=== PATIENT | female | born 1970 | race Caucasian/White ===

== ENCOUNTER 2017-04-07 11:22 | Emergency (ER) | payer OTHER ==
[2017-04-07] MEDS ORDERED: Sodium Chloride 0.9% 10 ML Syringe FLUSH PRN ×2 (11:27)
[2017-04-07 11:36] VITALS: BP 156/110
--- NOTE | 2017-04-07 11:38 | EDM.PDOC ---
ED HPI GENERAL MEDICAL PROBLEM - General Chief Complaint: Neuro Symptoms/Deficits Stated Complaint: WEAKNESS, BROUGHT OVER FROM ACU Time Seen by Provider: 04/07/17 11:26 Source of Information: Reports: Patient, RN Notes Reviewed History Limitations: Reports: No Limitations - History of Present Illness INITIAL COMMENTS - FREE TEXT/NARRATIVE: 46-year-old female presents emergency department day complaint of left-sided weakness, she does have a known history of CVA left side weakness with fair resolution and minimal residual effect. She was currently at the pain clinic today receive some lumbar injections approximately at 1050 starting complaining of weakness on her left side describes her leg and arm as feeling heavy nursing staff also noticed facial droop on the left side. Lower Back Pain Score (Numeric/FACES): 5 - Related Data Allergies Allergy/AdvReac Type Severity Reaction Status Date / Time procaine Allergy Severe Difficulty Verified 04/07/17 10:17 Breathing tetanus and diphtheria Allergy Severe Paralysis Verified 04/07/17 10:17 toxoids amoxicillin [Amoxicillin] Allergy Hives Verified 04/07/17 10:17 azithromycin Allergy Hives Verified 04/07/17 10:17 codeine Allergy Cannot Verified 04/07/17 10:17 Remember diazepam [From Valium] Allergy Hives Verified 04/07/17 10:17 fentanyl Allergy Hives Verified 04/07/17 10:17 ibuprofen Allergy Hives Verified 04/07/17 10:17 ketorolac tromethamine Allergy Hives Verified 04/07/17 10:17 [From Toradol] morphine Allergy Hives Verified 04/07/17 10:17 naproxen Allergy Hives Verified 04/07/17 10:17 oxycodone Allergy Hives Verified 04/07/17 10:17 propoxyphene Allergy Cannot Verified 04/07/17 10:17 Remember red (food color) Allergy Hives Verified 04/07/17 10:17 tramadol HCl [From Ultram] Allergy Hives Verified 04/07/17 10:17 apple AdvReac Vomiting Verified 04/07/17 10:17 barley AdvReac Vomiting Verified 04/07/17 10:17 Beef Containing Products AdvReac Vomiting Verified 04/07/17 10:17 caffeine AdvReac Vomiting Verified 04/07/17 10:17 corn AdvReac Vomiting Verified 04/07/17 10:17 Dairy Products AdvReac Vomiting Verified 04/07/17 10:17 wheat AdvReac Vomiting Verified 04/07/17 10:17 Alccynara Allergy Cannot Uncoded 04/07/17 10:17 Remember Arianna Beans AdvReac Vomiting Uncoded 04/07/17 10:17 Oats AdvReac Vomiting Uncoded 04/07/17 10:17 Home Meds: Home Meds Acetaminophen [Tylenol] 650 mg PO BEDTIME 10/09/13 [History] Venlafaxine [Effexor XR] 300 mg PO BEDTIME 07/13/14 [History] buPROPion [Wellbutrin XL] 450 mg PO DAILY 04/18/15 [History] Cyanocobalamin (Vitamin B-12) [Cyanocobalamin Injection] 1,000 mcg SUBCUT WEEKLY 05/18/15 [History] Aspirin [Adult Low Dose Aspirin EC] 81 mg PO DAILY 07/18/15 [History] Diclofenac Sodium [Voltaren 1% Gel] 4 g TOP QID 07/18/15 [History] EPINEPHrine [Epipen 2-Kali] 0.3 mg IM ASDIRECTED PRN 07/18/15 [History] Lidocaine 5% 1 applic TOP BID PRN 10/16/15 [History] LORazepam [Ativan] 0.5 mg PO TID 07/15/16 [History] Past Medical History Cardiovascular History: Reports: Other (See Below) Other Cardiovascular History: coronary artery spasm Gastrointestinal History: Reports: Colon Polyp, Other (See Below) Other Gastrointestinal History: masscell disease, precanaerous polyps Other Genitourinary History: Unable to obtain 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: Neurological History: Reports: CVA (Left-sided weakness residual, 2003) Psychiatric History: Reports: Depression Other Psychiatric History: Over dose Other Endocrine/Metabolic History: Unablet to obtain Hematologic History: Reports: B12 Deficiency - Past Surgical History GI Surgical History: Reports: Colonoscopy, EGD, Hernia, Abdominal Musculoskeletal Surgical History: Reports: Knee Replacement, Shoulder Surgery, Other (See Below) Social & Family History - Tobacco Use Smoking Status *Q: Never Smoker Second Hand Smoke Exposure: No - Recreational Drug Use Recreational Drug Use: No Recreational Drug Type: Reports: Other (see below) ED ROS GENERAL - Review of Systems Review Of Systems: See Below Constitutional: Reports: No Symptoms HEENT: Reports: No Symptoms Respiratory: Reports: No Symptoms Cardiovascular: Reports: No Symptoms GI/Abdominal: Reports: No Symptoms : Reports: No Symptoms Musculoskeletal: Reports: No Symptoms Skin: Reports: No Symptoms Neurological: Reports: Difficulty Walking, Weakness ED EXAM, NEURO - Physical Exam Exam: See Below Text/Narrative:: General: Female, not in any distress, alert and oriented x3 HEENT: head is atraumatic normocephalic, eyes pupils equal round reactive to light, sclera clear no conjunctivitis appreciated, extraocular eye movements intact. Nose no septal deviation, nares are clear, no blood present. Mouth mucosa is moist and pink no erythema or exudate noted in soft palate, tongue tongue deviates to the right. Neck: Supple no thyromegaly no tracheal deviation. Nodes: Cervical nodes subclavicular nodes nontender no palpable lymphadenopathy noted. Lungs: clear to auscultation bilaterally with symmetrical respirations, no adventitious noise appreciated. CV: Regular rate and rhythm S1 and S2 appreciated no murmurs rubs or gallops noted. Abdomen: Soft, nontender, no palpable masses or organomegaly appreciated, no distention no guarding bowel sounds are present, . Neuro: Cranial nerve XII deviates to the right, power is 5 out 5 in upper and lower extremities on the right there is no movement left leg there is minimal movement left arm with significant drift, patellar reflex, biceps reflex +2 no dysdiadochokinesis toes downgoing on left withdrawal reflex on right. An acute stroke scale 10 Skin: Warm and dry, intact Extremities: No lower extremity edema appreciated, pedal pulse is +2. Course - Vital Signs Last Recorded V/S: Last Vital Signs Temp 97.9 F 04/07/17 11:27 Pulse 127 H 04/07/17 11:27 Resp 16 04/07/17 11:27 BP 156/110 H 04/07/17 11:27 Pulse Ox 95 04/07/17 11:27 - Orders/Labs/Meds Orders: Active Orders 24 hr Category Date Time Status EKG Documentation Completion [RC] ASDIRECTED Care 04/07/17 11:28 Active Neuro Check [RC] Q15M Care 04/07/17 11:27 Active Peripheral IV Care [RC] . DIRECTED Care 04/07/17 11:28 Active COMPREHENSIVE METABOLIC PN,CMP [CHEM] Urgent Lab 04/07/17 11:47 Received INR,PT,PROTHROMBIN TIME [COAG] Urgent Lab 04/07/17 11:47 Received PTT,PARTIAL THROMBOPLSTIN TIME [COAG] Urgent Lab 04/07/17 11:47 Received TROPONIN I [CHEM] Urgent Lab 04/07/17 11:47 Received Alteplase [Activase] Med 04/07/17 12:00 Once 6 mg IVPUSH ONETIME ONE Alteplase [Activase] 54 mg Med 04/07/17 12:10 Active Premix Bag 1 bag IV ONETIME Sodium Chloride 0.9% [Saline Flush] Med 04/07/17 11:27 Active 10 ml FLUSH ASDIRECTED PRN Sodium Chloride 0.9% [Saline Flush] Med 04/07/17 11:27 Active 10 ml FLUSH ASDIRECTED PRN Peripheral IV Insertion Adult [OM.PC] Urgent Oth 04/07/17 11:27 Ordered EKG 12 Lead [EK] Urgent Ther 04/07/17 11:27 Ordered Medication Orders Alteplase, Recombinant (Activase) 6 mg IVPUSH ONETIME ONE Stop: 04/07/17 12:01 Alteplase, Recombinant 54 mg/ (Premix) 54 mls @ 54 mls/hr IV ONETIME ONE Stop: 04/07/17 13:09 Sodium Chloride (Saline Flush) 10 ml FLUSH ASDIRECTED PRN PRN Reason: Keep Vein Open Sodium Chloride (Saline Flush) 10 ml FLUSH ASDIRECTED PRN PRN Reason: Keep Vein Open Labs: Laboratory Tests 04/07/17 Range/Units 11:47 WBC 5.2 (4.5-11.0) K/uL RBC 4.16 (3.30-5.50) M/uL Hgb 12.8 (12.0-15.0) g/dL Hct 37.1 (36.0-48.0) % MCV 89 (80-98) fL MCH 31 (27-31) pg MCHC 35 (32-36) % Plt Count 209 (150-400) K/uL Neut % (Auto) 61 (36-66) % Lymph % (Auto) 27 (24-44) % [place] % (Auto) 11 H (2-6) % Eos % (Auto) 1 L (2-4) % Baso % (Auto) 0 (0-1) % Meds: Medications Generic Name Dose Route Start Last Admin Trade Name Freq PRN Reason Stop Dose Admin Alteplase, Recombinant 6 mg 04/07/17 12:00 Activase IVPUSH 04/07/17 12:01 ONETIME ONE Alteplase, Recombinant 54 mg/ 54 mls @ 54 mls/hr 04/07/17 12:10 Premix IV 04/07/17 13:09 ONETIME ONE Sodium Chloride 10 ml 04/07/17 11:27 Saline Flush FLUSH ASDIRECTED PRN Keep Vein Open Sodium Chloride 10 ml 04/07/17 11:27 Saline Flush FLUSH ASDIRECTED PRN Keep Vein Open Departure - Departure Time of Disposition: 12:03 Disposition: DC/Tfer to Acute Hospital 02 Condition: Fair Clinical Impression: Cerebrovascular accident (CVA) Qualifiers: CVA mechanism: unspecified Qualified Code(s): I63.9 - Cerebral infarction, unspecified - Discharge Information Referrals: PCP,None [Primary Care Provider] - Forms: ED Department Discharge - My Orders Last 24 Hours: My Active Orders 04/07/17 11:27 Neuro Check [RC] Q15M Sodium Chloride 0.9% [Saline Flush] 10 ml FLUSH ASDIRECTED PRN Sodium Chloride 0.9% [Saline Flush] 10 ml FLUSH ASDIRECTED PRN Peripheral IV Insertion Adult [OM.PC] Urgent EKG 12 Lead [EK] Urgent 04/07/17 11:28 EKG Documentation Completion [RC] ASDIRECTED Peripheral IV Care [RC] . DIRECTED 04/07/17 11:47 COMPREHENSIVE METABOLIC PN,CMP [CHEM] Urgent INR,PT,PROTHROMBIN TIME [COAG] Urgent PTT,PARTIAL THROMBOPLSTIN TIME [COAG] Urgent TROPONIN I [CHEM] Urgent 04/07/17 12:00 Alteplase [Activase] 6 mg IVPUSH ONETIME ONE 04/07/17 12:10 Alteplase [Activase] 54 mg Premix Bag 1 bag IV ONETIME - Assessment/Plan Last 24 Hours: My Active Orders 04/07/17 11:27 Neuro Check [RC] Q15M Sodium Chloride 0.9% [Saline Flush] 10 ml FLUSH ASDIRECTED PRN Sodium Chloride 0.9% [Saline Flush] 10 ml FLUSH ASDIRECTED PRN Peripheral IV Insertion Adult [OM.PC] Urgent EKG 12 Lead [EK] Urgent 04/07/17 11:28 EKG Documentation Completion [RC] ASDIRECTED Peripheral IV Care [RC] . DIRECTED 04/07/17 11:47 COMPREHENSIVE METABOLIC PN,CMP [CHEM] Urgent INR,PT,PROTHROMBIN TIME [COAG] Urgent PTT,PARTIAL THROMBOPLSTIN TIME [COAG] Urgent TROPONIN I [CHEM] Urgent 04/07/17 12:00 Alteplase [Activase] 6 mg IVPUSH ONETIME ONE 04/07/17 12:10 Alteplase [Activase] 54 mg Premix Bag 1 bag IV ONETIME Plan: Assessment Acuity = acute Site and laterality = cerebrovascular accident complicated patient with history of cerebrovascular accident in 2003 Etiology = probable ischemic Manifestations = left-sided hemiparesis Location of injury = Home Lab values = CT scan of the head shows no acute process remainder lab work is pending EKG demonstrates a sinus tachycardia Plan Called and discussed the case with Dr. Anguiano [facility] kindly accepted the patient in transport will be transported via air care [facility] transport ground [place] the [place], TPA was given 0.9 mg/kg Critical care time 30 minutes This note was dictated using [email or web address] voice recognition software please call with any questions.
--- NOTE | 2017-04-07 11:43 | CT ---
Head wo Cont HISTORY: Left-sided weakness. COMPARISON: None TECHNIQUE: Noncontrast enhanced axial cuts were obtained of the brain. Total DLP: 699. findings: there is no cerebral or subdural hemorrhage. There is no mass effect or edema. The ventricl es and CSF spaces are appropriate for age. No space occupying lesions are demonstrated. The orbital s tructures are unremarkable. The sinuses demonstrate normal aeration. IMPRESSION: Negative exam.
[2017-04-07] MEDS ORDERED: ALTEPLASE IV ONE (12:10)
== END 2017-04-07 12:41 ==
LOC: JP.ED 11:22
DX: I63.9 Cerebral infarction, unspecified (principal); I69.354 Hemiplegia and hemiparesis following cerebral infarction affecting left non-dominant side; F32.9 Major depressive disorder, single episode, unspecified; Z88.8 Allergy status to other drugs, medicaments and biological substances; Z79.82 Long term (current) use of aspirin; M60.9 Myositis, unspecified
CPT/HCPCS: 20553; 36415; 70450; 80053; 84484; 85025; 85610; 85730; 93005; 96365; 99285; J2997

== ENCOUNTER 2022-12-11 06:07 | Day surgery (SDC) | payer MEDICAID, OTHER ==
[2022-12-11] MEDS ORDERED: Sodium Chloride 0.9% 1,000 ML IV SCH (07:00)
[2022-12-11] MEDS ORDERED: Propofol 200 MG/20 ML SDV ONE (08:00)
[2022-12-11 08:40] VITALS: PULSE 67
[2022-12-11 09:03] VITALS: BP 102/58
== END 2022-12-11 09:12 | disposition home or self-care (01) ==
LOC: JP.SDS 06:07
PROVIDERS: ATTEND Surgery
DX: Z12.11 Encounter for screening for malignant neoplasm of colon (principal); K57.30 Diverticulosis of large intestine without perforation or abscess without bleeding; G47.33 Obstructive sleep apnea (adult) (pediatric); I10 Essential (primary) hypertension; K21.9 Gastro-esophageal reflux disease without esophagitis; M19.90 Unspecified osteoarthritis, unspecified site; I49.9 Cardiac arrhythmia, unspecified; F32.A Depression, unspecified; E66.9 Obesity, unspecified; Z91.011 Allergy to milk products; Z88.8 Allergy status to other drugs, medicaments and biological substances; Z88.5 Allergy status to narcotic agent; Z88.6 Allergy status to analgesic agent; Z88.7 Allergy status to serum and vaccine; Z88.1 Allergy status to other antibiotic agents; Z86.73 Personal history of transient ischemic attack (TIA), and cerebral infarction without residual deficits
CPT/HCPCS: 45378; J7030; J2704